=== PATIENT | female | born 1970 | race Caucasian/White ===

== ENCOUNTER 2020-11-26 10:59 | Emergency (ER) | payer OTHER, SELFPAY ==
[2020-11-26 11:54] VITALS: BP 198/113; PULSE 102; RESP 18; TEMP 36.4; O2SAT 99
--- NOTE | 2020-11-26 12:15 | ED.GENADULT ---
HPI - General Adult General Chief complaint: Unspecified Stated complaint: Medication Time Seen by Provider: 11/26/20 12:10 Source: patient Mode of arrival: ambulatory Limitations: no limitations History of Present Illness HPI narrative: Adelina Ribera is a 49 yo female with a PMH of prediabetes and HTN who comes to [facility] with request for refill of her diabetes and hypertension medications as she is moving in 3 days. Related Data Home Medications Medication Instructions Recorded Confirmed amlodipine 10 mg PO DAILY 11/26/20 11/26/20 glipizide 5 mg PO BID 11/26/20 11/26/20 lisinopril 40 mg PO DAILY 11/26/20 11/26/20 sulfamethoxazole-trimethoprim 1 tablet PO BID 11/26/20 11/26/20 Allergies Allergy/AdvReac Type Severity Reaction Status Date / Time No Known Allergies Allergy Unknown Unverified 07/11/16 21:39 Review of Systems Review of Systems: CONSTITUTIONAL: Denies fever, chills, sweats. EYES: Denies visual changes, redness, discharge. ENT: Denies rhinorrhea, congestion, sore throat, otalgia. CARDIOVASCULAR: Denies chest pain, palpitations, edema. RESPIRATORY: Denies dyspnea, wheezing, cough GASTROINTESTINAL: Denies abdominal pain, nausea, vomiting, diarrhea. GENITOURINARY: Denies dysuria, hematuria, abnormal discharge SKIN: Denies rash or itching. NEUROLOGIC: Denies numbness, or focal weakness. PSYCHIATRIC: Denies anxiety or depression. [facility] Past Medical History Medical History Hypertension Prediabetes Family History Family History Other Hypertension Social History Social History Smoking status: Never smoker Alcohol intake: current Comments At time of signature, I agree with nursing past medical, surgical, social and family history. There is no relevant family history pertinent to the presenting complaint. Exam Narrative: GENERAL: This is a well-nourished, well-developed patient, in mild distress. HEAD: normocephalic, atraumatic. EYES:. Sclera clear/white. Vision is grossly intact. EARS: External ears normal, . Hearing grossly intact. NOSE: External nose normal without nasal discharge, nares without redness, no rhinorrhea. THROAT: Mucous membranes moist, NECK: Neck supple, non-tender CARDIOVASCULAR: Regular rate and rhythm without murmurs, gallops, or rubs. RESPIRATORY: Clear to auscultation. Breath sounds equal bilaterally. No wheezes, rales, or rhonchi. GASTROINTESTINAL: Abdomen soft, non-tender, SKIN: warm, intact with no suspicious lesions or rash, good texture and turgor. NEURO: awake, alert, and oriented to person, place and time. There were no obvious focal neurologic abnormalities. Steady gait EXTREMITIES: Normal range of motion. BACK: Nontender without deformity Course Course Emergency Course: She comes to to [facility] for medication refill she is moving in 3 days Remove glipizide and blood pressure medications both lisinopril and amlodipine for 30-day supply Vital Signs Vital signs: Vital Signs Temperature 97.5 F L 11/26/20 11:54 Pulse Rate 102 H 11/26/20 11:54 Respiratory Rate 18 11/26/20 11:54 Blood Pressure 198/113 H 11/26/20 11:54 Pulse Oximetry 99 11/26/20 11:54 Temperature 97.5 F L 11/26/20 11:54 Pulse Rate 102 H 11/26/20 11:54 Respiratory Rate 18 11/26/20 11:54 Blood Pressure 198/113 H 11/26/20 11:54 Pulse Oximetry 99 11/26/20 11:54 Medical Decision Making Differential Diagnosis Differential Diagnosis: Medication refill Vital Signs Vital Signs: Vital Signs Temperature 97.5 F L 11/26/20 11:54 Pulse Rate 102 H 11/26/20 11:54 Respiratory Rate 18 11/26/20 11:54 Blood Pressure 198/113 H 11/26/20 11:54 Pulse Oximetry 99 11/26/20 11:54 Temperature 97.5 F L 11/26/20 11:54 Pulse Rate 102 H 11/26/20 11:54 Respiratory Rate 18
== END 2020-11-26 12:25 | disposition home or self-care (01) ==
PROVIDERS: Emergency Provider Nurse Practitioner
DX: Z76.0 Encounter for issue of repeat prescription (principal); E11.9 Type 2 diabetes mellitus without complications; I10 Essential (primary) hypertension
CPT/HCPCS: 99211; G0463